=== PATIENT | female | born 1965 | race Caucasian/White ===

== ENCOUNTER 2017-02-16 23:19 | Emergency (ER) | payer MEDICAID, OTHER ==
[~2017-02-16] VITALS: Ht 162.6 cm; Wt 59.1 kg
[~2017-02-16 23:19] MED LIST: DOXY150T PO; OMEP20 PO; PHEN100C23 PO; PHEN30TA41 PO; VICOT PO
[2017-02-16] MEDS ORDERED: BECL8.7A5 IH (23:24)
[2017-02-16] MEDS ORDERED: IPRAHFA IH (23:24)
[2017-02-17] MEDS ORDERED: PredniSONE 20 MG TABLET PO ONE (01:00)
[2017-02-17] MEDS ORDERED: LORazepam 1 MG TABLET PO ONE (01:00)
[2017-02-17] MEDS ORDERED: DiphenhydrAMINE HCL 50 MG/ML VIAL IM ONE (01:00)
[2017-02-17 01:29] VITALS: BP 117/78
== END 2017-02-17 01:46 | disposition home or self-care (01) ==
LOC: EMS 23:21
DX: L50.9 Urticaria, unspecified (principal); T78.40XA Allergy, unspecified, initial encounter; F17.210 Nicotine dependence, cigarettes, uncomplicated; X58.XXXA Exposure to other specified factors, initial encounter
CPT/HCPCS: 96372; 99283; 99406; J1200; J7512

== ENCOUNTER 2018-11-26 11:57 | Emergency (ER) | payer OTHER ==
[~2018-11-26] VITALS: Ht 162.6 cm; Wt 60.0 kg
[~2018-11-26 11:57] MED LIST changes: +BECL8.7A7 IH; -DOXY150T PO; +IPRAHFA IH; -OMEP20 PO; -VICOT PO
[2018-11-26 15:53] VITALS: BP 127/67
== END 2018-11-26 16:10 | disposition home or self-care (01) ==
LOC: EMS 11:58
DX: S20.211A Contusion of right front wall of thorax, initial encounter (principal); F17.210 Nicotine dependence, cigarettes, uncomplicated; W19.XXXA Unspecified fall, initial encounter; Y93.89 Activity, other specified; Y92.481 Parking lot as the place of occurrence of the external cause; Y99.8 Other external cause status
CPT/HCPCS: 71101